=== PATIENT | male | born 1945 | race Caucasian/White ===

== ENCOUNTER 2023-09-20 12:41 | Inpatient (IN) | payer OTHER ==
[~2023-09-20] VITALS: Ht 177.8 cm; Wt 79.4 kg
[2023-09-20 13:05] VITALS: BP_SYST 99; PULSE 104; RESP 18; TEMP 97.8; O2SAT 93
[2023-09-20 13:47] LABS: BASOPHILS % (AUTO) 0.2 % (0.0-2.0); EOSINOPHILS % (AUTO) 0.1 % (0.0-4.0); HEMOGLOBIN 14.1 g/dL (14.0-18.0); LYMPHOCYTES # (AUTO) 0.2 K/uL (1.0-5.5); LYMPHOCYTES % (AUTO) 4.6 % (20.5-51.5); MEAN CORPUSCULAR HEMOGLOBIN 28 pg (27-31); MEAN CORPUSCULAR HGB CONC 33 % (32-36); MEAN CORPUSCULAR VOLUME 85 fL (79.0-98.0); MONOCYTES # (AUTO) 0.2 K/uL (0.0-1.0); MONOCYTES % (AUTO) 4.7 % (1.7-9.3); NEUTROPHILS # (AUTO) 3.3 K/uL (1.8-7.7); NEUTROPHILS % (AUTO) 90.4 % (40.0-70.0); PLATELET COUNT (AUTO) 94 K/uL (130-430); RED BLOOD CELL COUNT(AUTO) 5.07 MIL/uL (4.2-6.2); RED CELL DISTRIBUTION WIDTH 13.5 % (9.0-15.0); WHITE BLOOD COUNT (AUTO) 3.6 K/uL (4.8-10.8)
[2023-09-20 13:58] LABS: ANION GAP 5 (5-15); CALCIUM 8.4 mg/dL (8.4-11.0); CARBON DIOXIDE 25 mmol/L (23-29); CHLORIDE 100 mmol/L (98-107); CREATININE 1.17 mg/dL (0.55-1.30); GLUCOSE 156 mg/dL (74-106); SODIUM SERUM 130 mmol/L (136-145); UREA NITROGEN, BLOOD 17 mg/dL (8-21)
[2023-09-20 14:04] LABS: ALANINE AMINOTRANSFERASE 38 U/L (12-78); ALBUMIN 2.7 g/dL (3.4-4.8); ASPARTATE AMINOTRANSFERASE 50 U/L (10-37); TOTAL BILIRUBIN 0.6 mg/dL (0.0-1.0)
[2023-09-20 15:22] LABS: INFLUENZA TYPE A Negative (NEGATIVE); INFLUENZA TYPE B NEGATIVE (NEGATIVE)
[2023-09-20] MEDS ORDERED: cefTRIAXone 1 GM in D5W 50 ML IV ONE (16:00)
[2023-09-20] MEDS ORDERED: AZITHROMYCIN 250 MG in NS 250 ML IV ONE (16:00)
[2023-09-20] MEDS ORDERED: cefTRIAXone 1 GM VIAL ONE (16:35)
[2023-09-20 16:45] LABS: TOTAL PROTEIN, SERUM 6.4 g/dL (6.4-8.3)
[2023-09-20] MEDS ORDERED: ACETAMINOPHEN 325 MG TABLET PO PRN (17:00)
[2023-09-20] MEDS ORDERED: ONDANSETRON HCL 4 MG/2 ML VIAL IVP PRN (17:00)
[2023-09-20] MEDS ORDERED: HYDROcodone/ACETAMIN 5-325 MG TAB (NORCO/ VICODIN) PO PRN ×2 (17:00→17:30)
[2023-09-20] MEDS ORDERED: AZITHROMYCIN 500 MG/VIAL (ZITHROMAX) IV ONE (17:02)
[2023-09-20 17:14] VITALS: BP_SYST 99; PULSE 104; O2SAT 93
[2023-09-20] MEDS ORDERED: NACL 0.9% 1,000 ML IV ONE (17:15)
[2023-09-20] MEDS ORDERED: ALBUTEROL SULFATE 0.083% 2.5 MG/3 ML VIAL.NEB INH PRN (17:15)
[2023-09-20] MEDS ORDERED: guaiFENesin/DEXTROMETHORPHAN 1 EACH TAB.ER.12H PO ONE (18:00)
[2023-09-20] MEDS ORDERED: DEXTROSE 50% JECT 50 ML DISP.SYRIN IVP PRN (18:30)
[2023-09-20] MEDS ORDERED: GLUCOSE (DEXTROSE) ORAL GEL -Adults PO PRN (18:30)
[2023-09-20] MEDS: METOPROLOL TARTRATE 25 MG TABLET PO SCH ×2 (18:43→21:00)
[2023-09-20] MEDS: guaiFENesin/DEXTROMETHORPHAN 1 EACH TAB.ER.12H PO SCH (21:00)
[2023-09-20] MEDS: ZOLPIDEM TARTRATE 5 MG TABLET PO PRN (21:47)
[2023-09-21] VITALS (8 sets, daily range): BP systolic 98–122; PULSE 61–88; RESP 15–18; TEMP 97.1–99.1; O2SAT 91–97
[2023-09-21 06:33] LABS: ALANINE AMINOTRANSFERASE 32 U/L (12-78); ALBUMIN 2.5 g/dL (3.4-4.8); ANION GAP 8 (5-15); ASPARTATE AMINOTRANSFERASE 54 U/L (10-37); CALCIUM 8.4 mg/dL (8.4-11.0); CARBON DIOXIDE 24 mmol/L (23-29); CHLORIDE 102 mmol/L (98-107); CREATININE 0.96 mg/dL (0.55-1.30); GLUCOSE 97 mg/dL (74-106); SODIUM SERUM 134 mmol/L (136-145); TOTAL BILIRUBIN 0.5 mg/dL (0.0-1.0); TOTAL PROTEIN, SERUM 5.9 g/dL (6.4-8.3); UREA NITROGEN, BLOOD 14 mg/dL (8-21)
[2023-09-21 06:39] LABS: BASOPHILS % (AUTO) 0.2 % (0.0-2.0); HEMATOCRIT 39.8 % (36-54); HEMOGLOBIN 13.2 g/dL (14.0-18.0); LYMPHOCYTES # (AUTO) 0.6 K/uL (1.0-5.5); LYMPHOCYTES % (AUTO) 13.5 % (20.5-51.5); MEAN CORPUSCULAR HEMOGLOBIN 28 pg (27-31); MEAN CORPUSCULAR HGB CONC 33 % (32-36); MEAN CORPUSCULAR VOLUME 85 fL (79.0-98.0); MONOCYTES # (AUTO) 0.4 K/uL (0.0-1.0); MONOCYTES % (AUTO) 7.8 % (1.7-9.3); NEUTROPHILS # (AUTO) 3.7 K/uL (1.8-7.7); NEUTROPHILS % (AUTO) 78.5 % (40.0-70.0); PLATELET COUNT (AUTO) 103 K/uL (130-430); RED BLOOD CELL COUNT(AUTO) 4.71 MIL/uL (4.2-6.2); RED CELL DISTRIBUTION WIDTH 13.6 % (9.0-15.0); WHITE BLOOD COUNT (AUTO) 4.8 K/uL (4.8-10.8)
[2023-09-21] MEDS: METOPROLOL TARTRATE 25 MG TABLET PO SCH ×2 (10:49→21:21)
[2023-09-21] MEDS: guaiFENesin/DEXTROMETHORPHAN 1 EACH TAB.ER.12H PO SCH ×2 (10:50→21:20)
[2023-09-21] MEDS: INSULIN LISPRO SLIDING SCALE 100 UNITS/ML, 3 ML VIAL (humaLOG) SUBCUT PRN ×2 (12:07→18:01)
[2023-09-21] MEDS ORDERED: CHOLECALCIFEROL (VITAMIN D3) 5,000 UNIT TABLET PO ONE (13:00)
[2023-09-21] MEDS ORDERED: DECADRON 4 MG TABLET PO ONE (13:00)
[2023-09-21] MEDS ORDERED: ENOXAPARIN SODIUM 40 MG/0.4 ML SYRINGE SUBCUT ONE (17:00)
[2023-09-21] MEDS: AZITHROMYCIN 500 MG in NS 250 ML IV SCH (17:58)
[2023-09-21] MEDS: cefTRIAXone 1 GM IVPB PREMIX 50 ML IV SCH (17:58)
[2023-09-21] MEDS: ASCORBIC ACID 500 MG TABLET PO SCH (21:20)
[2023-09-21] MEDS: ZOLPIDEM TARTRATE 5 MG TABLET PO PRN (21:21)
[2023-09-22 00:27] VITALS: BP_SYST 114; PULSE 83; RESP 17; TEMP 98.5; O2SAT 98
[2023-09-22 05:40] LABS: BASOPHILS % (AUTO) 0.1 % (0.0-2.0); EOSINOPHILS % (AUTO) 0.1 % (0.0-4.0); HEMATOCRIT 44.1 % (36-54); HEMOGLOBIN 14.4 g/dL (14.0-18.0); LYMPHOCYTES # (AUTO) 0.6 K/uL (1.0-5.5); LYMPHOCYTES % (AUTO) 18.6 % (20.5-51.5); MEAN CORPUSCULAR HEMOGLOBIN 28 pg (27-31); MEAN CORPUSCULAR HGB CONC 33 % (32-36); MEAN CORPUSCULAR VOLUME 86 fL (79.0-98.0); MONOCYTES # (AUTO) 0.2 K/uL (0.0-1.0); MONOCYTES % (AUTO) 6.4 % (1.7-9.3); NEUTROPHILS # (AUTO) 2.2 K/uL (1.8-7.7); NEUTROPHILS % (AUTO) 74.8 % (40.0-70.0); PLATELET COUNT (AUTO) 128 K/uL (130-430); RED BLOOD CELL COUNT(AUTO) 5.16 MIL/uL (4.2-6.2); RED CELL DISTRIBUTION WIDTH 13.5 % (9.0-15.0)
[2023-09-22 06:22] LABS: ALANINE AMINOTRANSFERASE 37 U/L (12-78); ALBUMIN 2.4 g/dL (3.4-4.8); ANION GAP 5 (5-15); ASPARTATE AMINOTRANSFERASE 59 U/L (10-37); CALCIUM 9.3 mg/dL (8.4-11.0); CARBON DIOXIDE 27 mmol/L (23-29); CHLORIDE 106 mmol/L (98-107); CREATININE 0.97 mg/dL (0.55-1.30); GLUCOSE 151 mg/dL (74-106); POTASSIUM 4.2 mmol/L (3.5-5.1); SODIUM SERUM 138 mmol/L (136-145); TOTAL BILIRUBIN 0.3 mg/dL (0.0-1.0); TOTAL PROTEIN, SERUM 6.5 g/dL (6.4-8.3); UREA NITROGEN, BLOOD 17 mg/dL (8-21)
[2023-09-22 08:00] VITALS: O2SAT 92
[2023-09-22 09:30] VITALS: BP_SYST 126; PULSE 91; RESP 18; O2SAT 92
[2023-09-22] MEDS: CHOLECALCIFEROL (VITAMIN D3) 5,000 UNIT TABLET PO SCH (10:13)
[2023-09-22] MEDS: ASCORBIC ACID 500 MG TABLET PO SCH ×2 (10:13→21:57)
[2023-09-22] MEDS: DECADRON 4 MG TABLET PO SCH (10:13)
[2023-09-22] MEDS: ENOXAPARIN SODIUM 40 MG/0.4 ML SYRINGE SUBCUT SCH (10:14)
[2023-09-22] MEDS: guaiFENesin/DEXTROMETHORPHAN 1 EACH TAB.ER.12H PO SCH ×2 (10:14→21:00)
[2023-09-22] MEDS: METOPROLOL TARTRATE 25 MG TABLET PO SCH ×2 (10:14→21:57)
[2023-09-22] MEDS: INSULIN LISPRO SLIDING SCALE 100 UNITS/ML, 3 ML VIAL (humaLOG) SUBCUT PRN ×3 (11:35→22:09)
[2023-09-22 11:39] VITALS: BP_SYST 137; PULSE 74; RESP 15; TEMP 98.5; O2SAT 91; O2SAT 97
[2023-09-22] MEDS: MICAFUNGIN SODIUM 50 MG in NS 50 ML IV SCH (14:03)
[2023-09-22 16:33] VITALS: BP_SYST 122; PULSE 70; RESP 15; TEMP 98.4; O2SAT 95
[2023-09-22] MEDS: cefTRIAXone 1 GM IVPB PREMIX 50 ML IV SCH (17:26)
[2023-09-22] MEDS: AZITHROMYCIN 500 MG in NS 250 ML IV SCH (17:27)
[2023-09-22 20:00] VITALS: BP_SYST 125; PULSE 79; RESP 16; TEMP 97.7; O2SAT 94
[2023-09-22] MEDS: ZOLPIDEM TARTRATE 5 MG TABLET PO PRN (22:08)
[2023-09-23] VITALS (9 sets, daily range): BP systolic 107–143; PULSE 57–79; RESP 17–18; TEMP 97.1–98.4; O2SAT 92–98
[2023-09-23 05:16] LABS: BASOPHILS % (AUTO) 0.1 % (0.0-2.0); HEMATOCRIT 39.4 % (36-54); HEMOGLOBIN 12.9 g/dL (14.0-18.0); LYMPHOCYTES # (AUTO) 0.5 K/uL (1.0-5.5); LYMPHOCYTES % (AUTO) 7.9 % (20.5-51.5); MEAN CORPUSCULAR HEMOGLOBIN 28 pg (27-31); MEAN CORPUSCULAR HGB CONC 33 % (32-36); MEAN CORPUSCULAR VOLUME 85 fL (79.0-98.0); MONOCYTES # (AUTO) 0.2 K/uL (0.0-1.0); NEUTROPHILS # (AUTO) 5.3 K/uL (1.8-7.7); PLATELET COUNT (AUTO) 152 K/uL (130-430); RED BLOOD CELL COUNT(AUTO) 4.65 MIL/uL (4.2-6.2); RED CELL DISTRIBUTION WIDTH 13.4 % (9.0-15.0)
[2023-09-23 05:53] LABS: ALANINE AMINOTRANSFERASE 44 U/L (12-78); ALBUMIN 2.3 g/dL (3.4-4.8); ANION GAP 9 (5-15); ASPARTATE AMINOTRANSFERASE 60 U/L (10-37); BILIRUBIN,DIRECT 0.1 mg/dL (0.0-0.3); CALCIUM 8.9 mg/dL (8.4-11.0); CARBON DIOXIDE 22 mmol/L (23-29); CHLORIDE 106 mmol/L (98-107); GLUCOSE 155 mg/dL (74-106); POTASSIUM 4.1 mmol/L (3.5-5.1); SODIUM SERUM 137 mmol/L (136-145); TOTAL BILIRUBIN 0.3 mg/dL (0.0-1.0); TOTAL PROTEIN, SERUM 5.7 g/dL (6.4-8.3); UREA NITROGEN, BLOOD 21 mg/dL (8-21)
[2023-09-23] MEDS: ASCORBIC ACID 500 MG TABLET PO SCH ×2 (09:07→21:30)
[2023-09-23] MEDS: guaiFENesin/DEXTROMETHORPHAN 1 EACH TAB.ER.12H PO SCH ×2 (09:07→21:30)
[2023-09-23] MEDS: ENOXAPARIN SODIUM 40 MG/0.4 ML SYRINGE SUBCUT SCH (09:07)
[2023-09-23] MEDS: CHOLECALCIFEROL (VITAMIN D3) 5,000 UNIT TABLET PO SCH (09:07)
[2023-09-23] MEDS: DECADRON 4 MG TABLET PO SCH (09:07)
[2023-09-23] MEDS: METOPROLOL TARTRATE 25 MG TABLET PO SCH ×2 (09:13→21:30)
[2023-09-23 10:03] LABS: BLOOD GAS PH 7.493 (7.350-7.450); BLOOD GAS PO2 50.7 mmHg (75.0-100.0)
[2023-09-23 10:04] LABS: ABG O2 SAT% ESTIMATE 89.2 % (94.0-100.0); ALLEN'S TEST POSITIVE (P); BLOOD GAS BASE EXCESS 0.9 mmol/L (-3.0-3.0); BLOOD GAS HCO3 23.3 mmol/L (21.0-27.0)
[2023-09-23] MEDS: INSULIN LISPRO SLIDING SCALE 100 UNITS/ML, 3 ML VIAL (humaLOG) SUBCUT PRN ×2 (11:10→17:43)
[2023-09-23] MEDS: MICAFUNGIN SODIUM 50 MG in NS 50 ML IV SCH (16:23)
[2023-09-23] MEDS: cefTRIAXone 1 GM IVPB PREMIX 50 ML IV SCH (18:17)
[2023-09-23] MEDS: AZITHROMYCIN 500 MG in NS 250 ML IV SCH (18:18)
[2023-09-23] MEDS: ZOLPIDEM TARTRATE 5 MG TABLET PO PRN (21:35)
[2023-09-24 04:21] LABS: BASOPHILS % (AUTO) 0.1 % (0.0-2.0); HEMATOCRIT 40.1 % (36-54); HEMOGLOBIN 13.2 g/dL (14.0-18.0); LYMPHOCYTES # (AUTO) 0.6 K/uL (1.0-5.5); LYMPHOCYTES % (AUTO) 7.9 % (20.5-51.5); MEAN CORPUSCULAR HEMOGLOBIN 28 pg (27-31); MEAN CORPUSCULAR HGB CONC 33 % (32-36); MEAN CORPUSCULAR VOLUME 85 fL (79.0-98.0); MONOCYTES # (AUTO) 0.4 K/uL (0.0-1.0); MONOCYTES % (AUTO) 5.3 % (1.7-9.3); NEUTROPHILS # (AUTO) 6.2 K/uL (1.8-7.7); NEUTROPHILS % (AUTO) 86.7 % (40.0-70.0); PLATELET COUNT (AUTO) 172 K/uL (130-430); RED BLOOD CELL COUNT(AUTO) 4.72 MIL/uL (4.2-6.2); RED CELL DISTRIBUTION WIDTH 13.9 % (9.0-15.0); WHITE BLOOD COUNT (AUTO) 7.1 K/uL (4.8-10.8)
[2023-09-24 04:31] LABS: ANION GAP 3 (5-15); CALCIUM 8.9 mg/dL (8.4-11.0); CARBON DIOXIDE 28 mmol/L (23-29); CHLORIDE 101 mmol/L (98-107); CREATININE 0.86 mg/dL (0.55-1.30); GLUCOSE 154 mg/dL (74-106); POTASSIUM 4.2 mmol/L (3.5-5.1); SODIUM SERUM 132 mmol/L (136-145); UREA NITROGEN, BLOOD 22 mg/dL (8-21)
[2023-09-24 08:30] VITALS: O2SAT 95
[2023-09-24] MEDS: ENOXAPARIN SODIUM 40 MG/0.4 ML SYRINGE SUBCUT SCH (08:45)
[2023-09-24] MEDS: ASCORBIC ACID 500 MG TABLET PO SCH ×2 (08:48→21:47)
[2023-09-24] MEDS: guaiFENesin/DEXTROMETHORPHAN 1 EACH TAB.ER.12H PO SCH ×2 (08:48→21:46)
[2023-09-24] MEDS: CHOLECALCIFEROL (VITAMIN D3) 5,000 UNIT TABLET PO SCH (08:48)
[2023-09-24] MEDS: METOPROLOL TARTRATE 25 MG TABLET PO SCH ×2 (08:48→21:47)
[2023-09-24] MEDS: DECADRON 4 MG TABLET PO SCH (08:49)
[2023-09-24] MEDS: INSULIN LISPRO SLIDING SCALE 100 UNITS/ML, 3 ML VIAL (humaLOG) SUBCUT PRN ×2 (11:41→18:39)
[2023-09-24 12:00] VITALS: BP_SYST 107; PULSE 63; RESP 18; TEMP 95.4; O2SAT 95
[2023-09-24] MEDS: MICAFUNGIN SODIUM 50 MG in NS 50 ML IV SCH (12:24)
[2023-09-24 16:00] VITALS: BP_SYST 127; PULSE 68; RESP 16; TEMP 94.5; O2SAT 94
[2023-09-24] MEDS: cefTRIAXone 1 GM IVPB PREMIX 50 ML IV SCH (16:40)
[2023-09-24] MEDS: AZITHROMYCIN 500 MG in NS 250 ML IV SCH (17:19)
[2023-09-24 20:00] VITALS: BP_SYST 115; PULSE 82; RESP 16; TEMP 97; O2SAT 94
[2023-09-24] MEDS: ZOLPIDEM TARTRATE 5 MG TABLET PO PRN (21:48)
[2023-09-24 22:20] VITALS: O2SAT 95
[2023-09-25] VITALS (9 sets, daily range): BP systolic 130–145; PULSE 62–75; RESP 16–20; TEMP 97.5–98.4; O2SAT 94–98
[2023-09-25 05:21] LABS: BASOPHILS % (AUTO) 0.1 % (0.0-2.0); HEMOGLOBIN 13.5 g/dL (14.0-18.0); LYMPHOCYTES # (AUTO) 0.6 K/uL (1.0-5.5); LYMPHOCYTES % (AUTO) 6.2 % (20.5-51.5); MEAN CORPUSCULAR HEMOGLOBIN 28 pg (27-31); MEAN CORPUSCULAR HGB CONC 33 % (32-36); MEAN CORPUSCULAR VOLUME 85 fL (79.0-98.0); MONOCYTES # (AUTO) 0.8 K/uL (0.0-1.0); MONOCYTES % (AUTO) 8.5 % (1.7-9.3); NEUTROPHILS # (AUTO) 8.1 K/uL (1.8-7.7); NEUTROPHILS % (AUTO) 85.2 % (40.0-70.0); PLATELET COUNT (AUTO) 178 K/uL (130-430); RED BLOOD CELL COUNT(AUTO) 4.82 MIL/uL (4.2-6.2); RED CELL DISTRIBUTION WIDTH 13.7 % (9.0-15.0); WHITE BLOOD COUNT (AUTO) 9.5 K/uL (4.8-10.8)
[2023-09-25 05:39] LABS: ALANINE AMINOTRANSFERASE 63 U/L (12-78); ALBUMIN 2.3 g/dL (3.4-4.8); ANION GAP 8 (5-15); ASPARTATE AMINOTRANSFERASE 42 U/L (10-37); CARBON DIOXIDE 26 mmol/L (23-29); CHLORIDE 103 mmol/L (98-107); CREATININE 0.83 mg/dL (0.55-1.30); GLUCOSE 137 mg/dL (74-106); POTASSIUM 3.8 mmol/L (3.5-5.1); SODIUM SERUM 137 mmol/L (136-145); TOTAL BILIRUBIN 0.5 mg/dL (0.0-1.0); TOTAL PROTEIN, SERUM 5.5 g/dL (6.4-8.3); UREA NITROGEN, BLOOD 20 mg/dL (8-21)
[2023-09-25] MEDS: CHOLECALCIFEROL (VITAMIN D3) 5,000 UNIT TABLET PO SCH (10:32)
[2023-09-25] MEDS: DECADRON 4 MG TABLET PO SCH (10:32)
[2023-09-25] MEDS: METOPROLOL TARTRATE 25 MG TABLET PO SCH ×2 (10:34→21:36)
[2023-09-25] MEDS: guaiFENesin/DEXTROMETHORPHAN 1 EACH TAB.ER.12H PO SCH ×2 (10:35→21:36)
[2023-09-25] MEDS: ASCORBIC ACID 500 MG TABLET PO SCH ×2 (10:35→21:35)
[2023-09-25] MEDS: ENOXAPARIN SODIUM 40 MG/0.4 ML SYRINGE SUBCUT SCH (10:35)
[2023-09-25] MEDS: INSULIN LISPRO SLIDING SCALE 100 UNITS/ML, 3 ML VIAL (humaLOG) SUBCUT PRN ×2 (11:54→17:37)
[2023-09-25] MEDS: MICAFUNGIN SODIUM 50 MG in NS 50 ML IV SCH (15:11)
[2023-09-25] MEDS: cefTRIAXone 1 GM IVPB PREMIX 50 ML IV SCH (18:22)
[2023-09-25] MEDS: AZITHROMYCIN 500 MG in NS 250 ML IV SCH (20:22)
[2023-09-25] MEDS: ZOLPIDEM TARTRATE 5 MG TABLET PO PRN (21:42)
[2023-09-26] VITALS (8 sets, daily range): BP systolic 109–129; PULSE 57–88; RESP 16–21; TEMP 97.1–98.7; O2SAT 95–96
[2023-09-26] MEDS: METOPROLOL TARTRATE 25 MG TABLET PO SCH ×2 (09:42→20:16)
[2023-09-26] MEDS: DECADRON 4 MG TABLET PO SCH (09:43)
[2023-09-26] MEDS: guaiFENesin/DEXTROMETHORPHAN 1 EACH TAB.ER.12H PO SCH ×2 (09:43→20:14)
[2023-09-26] MEDS: ASCORBIC ACID 500 MG TABLET PO SCH ×2 (09:43→20:13)
[2023-09-26] MEDS: ENOXAPARIN SODIUM 40 MG/0.4 ML SYRINGE SUBCUT SCH (09:44)
[2023-09-26] MEDS: CHOLECALCIFEROL (VITAMIN D3) 5,000 UNIT TABLET PO SCH (09:44)
[2023-09-26] MEDS: MICAFUNGIN SODIUM 50 MG in NS 50 ML IV SCH (12:47)
[2023-09-26] MEDS: cefTRIAXone 1 GM IVPB PREMIX 50 ML IV SCH (17:07)
[2023-09-26] MEDS: INSULIN LISPRO SLIDING SCALE 100 UNITS/ML, 3 ML VIAL (humaLOG) SUBCUT PRN ×2 (17:19→22:47)
[2023-09-26] MEDS: ZOLPIDEM TARTRATE 5 MG TABLET PO PRN (22:42)
[2023-09-27] VITALS (7 sets, daily range): BP systolic 111–134; PULSE 63–94; RESP 17–22; TEMP 97.9–99; O2SAT 92–96
[2023-09-27 05:29] LABS: BASOPHILS # (AUTO) 0.1 K/uL (0.0-0.2); BASOPHILS % (AUTO) 1.2 % (0.0-2.0); EOSINOPHILS % (AUTO) 0.2 % (0.0-4.0); HEMATOCRIT 43.3 % (36-54); HEMOGLOBIN 14.1 g/dL (14.0-18.0); LYMPHOCYTES # (AUTO) 0.6 K/uL (1.0-5.5); MEAN CORPUSCULAR HEMOGLOBIN 28 pg (27-31); MEAN CORPUSCULAR HGB CONC 33 % (32-36); MEAN CORPUSCULAR VOLUME 86 fL (79.0-98.0); MONOCYTES # (AUTO) 0.6 K/uL (0.0-1.0); MONOCYTES % (AUTO) 6.8 % (1.7-9.3); NEUTROPHILS # (AUTO) 7.3 K/uL (1.8-7.7); NEUTROPHILS % (AUTO) 84.8 % (40.0-70.0); PLATELET COUNT (AUTO) 241 K/uL (130-430); RED BLOOD CELL COUNT(AUTO) 5.03 MIL/uL (4.2-6.2); RED CELL DISTRIBUTION WIDTH 13.9 % (9.0-15.0); WHITE BLOOD COUNT (AUTO) 8.5 K/uL (4.8-10.8)
[2023-09-27 05:47] LABS: ANION GAP 3 (5-15); CALCIUM 9.2 mg/dL (8.4-11.0); CARBON DIOXIDE 31 mmol/L (23-29); CHLORIDE 100 mmol/L (98-107); CREATININE 0.94 mg/dL (0.55-1.30); GLUCOSE 134 mg/dL (74-106); POTASSIUM 4.3 mmol/L (3.5-5.1); SODIUM SERUM 134 mmol/L (136-145); UREA NITROGEN, BLOOD 22 mg/dL (8-21)
[2023-09-27] MEDS: ENOXAPARIN SODIUM 40 MG/0.4 ML SYRINGE SUBCUT SCH (08:17)
[2023-09-27] MEDS: CHOLECALCIFEROL (VITAMIN D3) 5,000 UNIT TABLET PO SCH (08:17)
[2023-09-27] MEDS: ASCORBIC ACID 500 MG TABLET PO SCH ×2 (08:18→20:33)
[2023-09-27] MEDS: METOPROLOL TARTRATE 25 MG TABLET PO SCH ×2 (08:18→20:34)
[2023-09-27] MEDS: DECADRON 4 MG TABLET PO SCH (08:18)
[2023-09-27] MEDS: guaiFENesin/DEXTROMETHORPHAN 1 EACH TAB.ER.12H PO SCH ×2 (10:23→20:33)
[2023-09-27] MEDS: MICAFUNGIN SODIUM 50 MG in NS 50 ML IV SCH (13:16)
[2023-09-27] MEDS ORDERED: PANTOPRAZOLE SODIUM 40 MG TAB PO ONE (14:30)
[2023-09-27] MEDS: cefTRIAXone 1 GM IVPB PREMIX 50 ML IV SCH (17:22)
[2023-09-27] MEDS: INSULIN LISPRO SLIDING SCALE 100 UNITS/ML, 3 ML VIAL (humaLOG) SUBCUT PRN ×2 (17:30→20:43)
[2023-09-27] MEDS: ZOLPIDEM TARTRATE 5 MG TABLET PO PRN (21:51)
[2023-09-28] VITALS (7 sets, daily range): BP systolic 110–132; PULSE 73–88; RESP 18–21; TEMP 97.9–98.6; O2SAT 92–97
[2023-09-28] MEDS ORDERED: FUROSEMIDE 20 MG/2 ML VIAL IVP ONE (06:30)
[2023-09-28] MEDS ORDERED: FUROSEMIDE 20 MG/2 ML VIAL ONE (06:48)
[2023-09-28 07:24] LABS: BASOPHILS % (AUTO) 0.4 % (0.0-2.0); EOSINOPHILS % (AUTO) 0.3 % (0.0-4.0); HEMOGLOBIN 16.1 g/dL (14.0-18.0); LYMPHOCYTES # (AUTO) 1.1 K/uL (1.0-5.5); LYMPHOCYTES % (AUTO) 11.2 % (20.5-51.5); MEAN CORPUSCULAR HEMOGLOBIN 28 pg (27-31); MEAN CORPUSCULAR HGB CONC 32 % (32-36); MEAN CORPUSCULAR VOLUME 86 fL (79.0-98.0); MONOCYTES # (AUTO) 0.6 K/uL (0.0-1.0); MONOCYTES % (AUTO) 6.4 % (1.7-9.3); NEUTROPHILS # (AUTO) 8.2 K/uL (1.8-7.7); NEUTROPHILS % (AUTO) 81.7 % (40.0-70.0); PLATELET COUNT (AUTO) 306 K/uL (130-430); RED CELL DISTRIBUTION WIDTH 13.7 % (9.0-15.0)
[2023-09-28 07:50] LABS: ANION GAP 7 (5-15); CALCIUM 9.5 mg/dL (8.4-11.0); CARBON DIOXIDE 28 mmol/L (23-29); CHLORIDE 98 mmol/L (98-107); CREATININE 1.05 mg/dL (0.55-1.30); GLUCOSE 131 mg/dL (74-106); POTASSIUM 4.2 mmol/L (3.5-5.1); SODIUM SERUM 133 mmol/L (136-145); UREA NITROGEN, BLOOD 28 mg/dL (8-21)
[2023-09-28] MEDS: ENOXAPARIN SODIUM 40 MG/0.4 ML SYRINGE SUBCUT SCH (08:28)
[2023-09-28] MEDS: ASCORBIC ACID 500 MG TABLET PO SCH ×2 (08:28→21:36)
[2023-09-28] MEDS: DECADRON 4 MG TABLET PO SCH (08:28)
[2023-09-28] MEDS: PANTOPRAZOLE SODIUM 40 MG TAB PO SCH (08:28)
[2023-09-28] MEDS: CHOLECALCIFEROL (VITAMIN D3) 5,000 UNIT TABLET PO SCH (08:28)
[2023-09-28] MEDS: guaiFENesin/DEXTROMETHORPHAN 1 EACH TAB.ER.12H PO SCH ×2 (08:29→21:32)
[2023-09-28] MEDS: METOPROLOL TARTRATE 25 MG TABLET PO SCH ×2 (08:30→21:32)
[2023-09-28] MEDS: INSULIN LISPRO SLIDING SCALE 100 UNITS/ML, 3 ML VIAL (humaLOG) SUBCUT PRN ×3 (12:26→21:31)
[2023-09-28] MEDS: MICAFUNGIN SODIUM 50 MG in NS 50 ML IV SCH (12:27)
[2023-09-28] MEDS: ZOLPIDEM TARTRATE 5 MG TABLET PO PRN (21:36)
[2023-09-29] VITALS: BP_SYST 127; PULSE 68; RESP 18; TEMP 97.7; O2SAT 97
[2023-09-29 07:30] VITALS: BP_SYST 117; PULSE 75; RESP 18; TEMP 98.4; O2SAT 93
[2023-09-29 07:51] VITALS: O2SAT 95
[2023-09-29 08:04] VITALS: BP_SYST 127; PULSE 70; O2SAT 95
[2023-09-29] MEDS: CHOLECALCIFEROL (VITAMIN D3) 5,000 UNIT TABLET PO SCH (09:42)
[2023-09-29] MEDS: ASCORBIC ACID 500 MG TABLET PO SCH (09:42)
[2023-09-29] MEDS: ENOXAPARIN SODIUM 40 MG/0.4 ML SYRINGE SUBCUT SCH (09:42)
[2023-09-29] MEDS: PANTOPRAZOLE SODIUM 40 MG TAB PO SCH (09:42)
[2023-09-29] MEDS: DECADRON 4 MG TABLET PO SCH (09:44)
[2023-09-29] MEDS: METOPROLOL TARTRATE 25 MG TABLET PO SCH (09:45)
[2023-09-29] MEDS: guaiFENesin/DEXTROMETHORPHAN 1 EACH TAB.ER.12H PO SCH (09:46)
[2023-09-29] MEDS ORDERED: METO25TA6 PO (10:41)
[2023-09-29] MEDS ORDERED: ALBMDI INH (10:42)
[2023-09-29 12:00] VITALS: BP_SYST 122; PULSE 85; RESP 18; TEMP 97.5; O2SAT 91
[2023-09-29] MEDS: INSULIN LISPRO SLIDING SCALE 100 UNITS/ML, 3 ML VIAL (humaLOG) SUBCUT PRN (12:19)
== END 2023-09-29 13:00 | disposition home or self-care (01) | DRG 177 ==
LOC: SED 12:41 → STU 16:56 → SMU 09-22 17:53
PROVIDERS: ADMIT Family Medicine; ATTEND Specialist
PROC: XW033E5 Introduction of Remdesivir Anti-infective into Peripheral Vein, Percutaneous Approach, New Technology Group 5 (ICD-10-PCS; principal; 2023-09-22)
DX: U07.1 COVID-19 (principal); J12.82 Pneumonia due to coronavirus disease 2019; J96.01 Acute respiratory failure with hypoxia; J18.1 Lobar pneumonia, unspecified organism; E44.0 Moderate protein-calorie malnutrition; E87.1 Hypo-osmolality and hyponatremia; J44.0 Chronic obstructive pulmonary disease with (acute) lower respiratory infection; J44.1 Chronic obstructive pulmonary disease with (acute) exacerbation; E11.9 Type 2 diabetes mellitus without complications; I48.91 Unspecified atrial fibrillation; E66.9 Obesity, unspecified; Z79.01 Long term (current) use of anticoagulants; Z68.25 Body mass index [BMI] 25.0-25.9, adult
CPT/HCPCS: 36415; 36600; 71045; 80048; 80053; 80076; 82803; 82962; 83037; 83880; 84484; 85025; 85379; 87040; 93005; 94640; 94760; 96365; 96367; 97110-GP; 97116-GP; 97530-GP; 99285; G0378; J0456; J0696; J1650; J1940; J7050; J8540